=== PATIENT | female | born 1995 | race Caucasian/White ===

== ENCOUNTER 2020-03-20 10:41 | Emergency (ER) | payer SELFPAY ==
[2020-03-20 10:46] VITALS: BP 110/95
--- NOTE | 2020-03-20 10:56 | ER Document Report ---
HPI - HPI Time Seen by Provider: 03/20/20 10:49 Notes: 25-year-old female presents the emergency room today for evaluation of left eye irritation that started last night. Reports she had burning in the eye with irritation, states today she is feeling little bit better. Denies wearing contacts, no visual changes. Reports she did have exudates in her right eye. Today she does not like there is anything in her eye. She does feel that the eyes slightly swollen today. Denies any eye pain. denies any trauma to her eye. Denies fevers, chills, chest pain,palpitations, shortness of breath, dyspnea, nausea, vomiting, diarrhea, abdominal pain, hematuria,blurred vision, double vision, loss of vision, speech changes, LH, dizziness, syncope, headaches, wheezing, ST, URI, neck pain, weakness, bowel or bladder dysfunction, saddle anesthesia, numbness or tingling in bilateral upper or lower extremities equally, muscle paralysis, weakness in bilateral upper or lower extremities equally or rash. Past Medical History - General Information source: Patient - Social History Smoking Status: Unknown if Ever Smoked Family History: Reviewed & Not Pertinent Vertical Provider Document - CONSTITUTIONAL Agree With Documented VS: Yes Exam Limitations: No Limitations General Appearance: WD/WN Notes: MEDICATIONS: I agree with the patient medications as charted by the RN. ALLERGIES: I agree with the allergies as charted by the RN. PAST MEDICAL HISTORY/PAST SURGICAL HISTORY: Reviewed and agree as charted by RN. SOCIAL HISTORY: Reviewed and agree as charted by RN. FAMILY HISTORY: No significant familial comorbid conditions directly related to patient complaint EXAM: Reviewed vital signs as charted by RN. PHYSICAL EXAMINATION: reviewed vital signs by RN GENERAL: Well-appearing, well-nourished and in no acute distress. HEAD: Atraumatic, normocephalic. EYES: Pupils equal round and reactive to light, extraocular movements intact, conjunctiva are normal. Fluostain wnl. PERRLA, normal accommodation, EMOI, peripheral vision bilaterally and equally. no exudates noted. red reflex wnl. fluostain negative for corneal abrasion, foreign body, dendrites, or ulcer. Normal fundi and optic discs. Corneas grossly clear. No nystagmus bilaterally. No ptosis, photophobia. ENT: Nares patent, oropharynx clear without exudates. Moist mucous membranes. NECK: Normal range of motion, supple without lymphadenopathy LUNGS: Breath sounds clear to auscultation bilaterally and equal. No wheezes rales or rhonchi. HEART: Regular rate and rhythm without murmurs ABDOMEN: Soft, nontender, nondistended abdomen. No guarding, no rebound. No masses appreciated. Female : deferred Musculoskeletal: Normal range of motion, no pitting or edema. No cyanosis. NEUROLOGICAL: Cranial nerves grossly intact. Normal speech, normal gait. Normal sensory, motor exams PSYCH: Normal mood, normal affect. SKIN: Warm, Dry, normal turgor, no rashes or lesions noted. Course - Re-evaluation Re-evalutation: 03/20/20 11:00 Afebrile vital stable no distress. Nursing notes reviewed. Discussed with patient that she does not let warm compress to site 20 minutes on 20 minutes off several times a day, use drops as directed. Follow-up with director data analytics as well as primary care provider within 24 to 48 hours as needed. Advised to return to the emergency room which experiences any worsening pain, fever, visual changes, etc. After performing a Medical Screening Examination, I estimate there is LOW risk for a RETAINED CORNEAL or LID FOREIGN BODY, DEEP SPACE INFECTION (e.g., ORBITAL CELLULITIS OR ABSCESS), ACUTE GLAUCOMA, PENETRATING GLOBE INJURY, RETINAL DETACHMENT, or MENINGITIS thus I consider the discharge disposition reasonable. I have reevaluated this patient multiple times and no significant life threatening changes are noted. Also, there is no evidence or peritonitis, sepsis, or toxicity. The patient and I have discussed the diagnosis and risks, and we agree with discharging home with outpatient follow-up with the understanding that symptoms and presentations can change. We also discussed returning to the Emergency Department immediately if new or worsening symptoms occur. We have discussed the symptoms which are most concerning (e.g., changing or worsening pain, vision changes, neck stiffness or fever) that necessitate immediate return. - Vital Signs Vital signs: Temp Pulse Resp BP Pulse Ox 98.5 F 84 16 110/95 H 98 03/20/20 10:45 03/20/20 10:45 03/20/20 10:45 03/20/20 10:45 03/20/20 10:45 - Laboratory Results Critical Laboratory Results Reviewed: No Critical Results - Radiology Results Critical Radiology Results Reviewed: No Critical Results Discharge - Discharge Clinical Impression: Conjunctivitis, bacterial Condition: Stable Disposition: HOME, SELF-CARE Instructions: Antibiotic Therapy ([facility]), Conjunctivitis ([facility]), Eyedrop Use ([facility]) Additional Instructions: Conjunctivitis You have an infection in your eye, commonly known as "pink eye." Conjunctivitis causes redness, mild discomfort, itching, and mattering on the eyelids. It is very contagious, so you must be careful to wash your hands after touching your face so you don't pass the infection on to others. Conjunctivitis is caused by both viruses and bacteria. It usually responds quickly to treatment with antibiotic drops. These should be placed in the eye as prescribed (usually every three to four hours while you're awake). If you wear contact lenses, don't put them in your eyes until the infection is cleared and you are no longer using the drops (unless your doctor advises you otherwise). Should you develop increasing eye pain, severe swelling, decreased vision, or fail to improve as expected, please return for re-examination. Return immediately for any new or worsening symptoms. Follow up with primary care provider, call tomorrow to make followup appointment. Prescriptions: Polymyxin B Sulfate/Tmp [Polytrim Oph Soln 10 ml] 1 drop OP ASDIR PRN #1 bottle PRN Reason: Forms: Return to Work Referrals: JOSE ELIAS BAKER MD [ACTIVE STAFF] - Follow up as needed SCOTT GASCA MD [ACTIVE STAFF] - Follow up as needed
== END 2020-03-20 11:08 | disposition home or self-care (01) ==
LOC: ER 10:41
DX: H10.89 Other conjunctivitis (principal); B96.89 Other specified bacterial agents as the cause of diseases classified elsewhere
CPT/HCPCS: 99283